=== PATIENT | female | born 1970 | race Caucasian/White ===

== ENCOUNTER → 2019-09-27 | Outpatient (CLI) | payer OTHER ==
[2019-09-29 15:12] LABS: HPV 16 Negative (Negative); HPV 18 Negative (Negative); HPV OTHER HR TYPES Negative (Negative)
[2019-09-30 03:08] LABS: CHLAMYDIA TRACHOMATIS, NAA Negative (Negative); NEISSERIA GONORRHOEAE, NAA Negative (Negative)
== END | disposition home or self-care (01) ==
LOC: LAB SHORT 10:17 → LAB 10:17
PROVIDERS: Nurse Practitioner Family
DX: Z01.419 Encounter for gynecological examination (general) (routine) without abnormal findings (principal)
CPT/HCPCS: 87491; 87591; 87624; G0123

== ENCOUNTER 2020-04-02 09:05 | Day surgery (SDC) | payer OTHER ==
[~2020-04-02] VITALS: Ht 160 cm; Wt 99.7 kg
[~2020-04-02 09:05] MED LIST: BUPR150ER PO
--- NOTE | 2020-04-02 10:11 | NUR ---
04/02/20 1011 Jyoti Hodges BLOCK COMPLETE IN OR BEFORE SURGERY START BY DR. ROSADO. STIE CHECK COMPLETED FOR THIS.
--- NOTE | 2020-04-02 11:22 | NUR ---
04/02/20 1121 Mariana Ramos PT HAD A BOUT OF NAUSEA AFTER IV WAS OUT. OFFERED MAGUI MIST AND COOL CLOTH FOR HER FOREHEAD. PT STATES IT IS FEELING BETTER. OK TO GO HOME.
== END 2020-04-02 11:19 | disposition home or self-care (01) ==
LOC: ORSCSDS 09:05
PROVIDERS: Orthopaedic Surgery
PROC: 01N50ZZ Release Median Nerve, Open Approach (ICD-10-PCS; principal; 2020-04-02 10:15)
DX: G56.02 Carpal tunnel syndrome, left upper limb (principal); E78.5 Hyperlipidemia, unspecified; E66.01 Morbid (severe) obesity due to excess calories; Z68.37 Body mass index [BMI] 37.0-37.9, adult; Z79.899 Other long term (current) drug therapy
CPT/HCPCS: J0690; J2250; J2704; J3010; J7120

== ENCOUNTER → 2021-08-06 | Outpatient (CLI) | payer OTHER | END | disposition home or self-care (01) | LOC: LAB SHORT 12:00 → LAB FUT 08-06 16:15 | DX: N39.0 Urinary tract infection, site not specified (principal) | CPT/HCPCS: 87086 ==

== ENCOUNTER → 2021-08-21 | Outpatient (CLI) | payer OTHER | END | disposition home or self-care (01) | LOC: LAB SHORT 12:00 | DX: R30.9 Painful micturition, unspecified (principal) | CPT/HCPCS: 87077; 87086; 87186 ==

== ENCOUNTER → 2021-09-30 | Outpatient (CLI) | payer OTHER | END | disposition home or self-care (01) | LOC: LAB 08:51 → LAB SHORT 08:51 | DX: N39.0 Urinary tract infection, site not specified (principal) | CPT/HCPCS: 87077; 87086; 87186 ==

== ENCOUNTER → 2022-09-03 | Outpatient (CLI) | payer OTHER ==
[2022-09-05 10:10] LABS: HPV 16 Negative (Negative); HPV 18 Negative (Negative); HPV OTHER HR TYPES Negative (Negative)
== END | disposition home or self-care (01) ==
LOC: LAB 15:20 → LAB SHORT 15:20
PROVIDERS: Registered Nurse Community Health
DX: Z12.4 Encounter for screening for malignant neoplasm of cervix (principal)
CPT/HCPCS: 87624; G0145

== ENCOUNTER → 2024-11-23 | Outpatient (CLI) | payer OTHER | LOC: LAB 14:38 → LAB SHORT 14:38 | DX: N84.0 Polyp of corpus uteri (principal); N95.0 Postmenopausal bleeding | CPT/HCPCS: 88305 ==